=== PATIENT | female | born 1985 | race African-American/Black ===

== ENCOUNTER 2019-11-07 15:08 | Emergency (ER) | payer OTHER, SELFPAY ==
[2019-11-07 15:12] VITALS: BP 113/83; PULSE 64; RESP 20; TEMP 36.6; O2SAT 99
[2019-11-07 15:57] LABS: Add Urine Microscopic? YES; Appearance Urine Cloudy (Clear); Bilirubin Urine Negative (Negative); Blood Urine Negative (Negative); Color Urine Yellow (Yellow); Glucose Urine UA Negative (Negative); Ketones Urine Negative (Negative); Leukocyte Esterase Ur Negative LEU/UL (Negative); Mucus Urine Heavy /lpf; Nitrate Urine Negative (Negative); Protein Urine Negative (Negative); RBC Urine 0-2 /hpf (0-2); Specific Grav Ur 1.021 (1.001-1.035); Squamous Epithelial Cell Urine Many /hpf (Few); WBC Urine 0-3 /hpf
[2019-11-07 16:16] LABS: Bacteria Urine Trace /hpf
--- NOTE | 2019-11-07 16:47 | ED.FEMALEGU ---
HPI - Female Genitourinary General Chief complaint: Urogenital-Female Stated complaint: std, uti check Time Seen by Provider: 11/07/19 15:23 Source: patient Mode of arrival: ambulatory Limitations: no limitations History of Present Illness HPI Narrative: This is a 34 year old female that presents to the ER for abnormal vaginal discharge x 1 month. Also reports some dysuria and frequency. Reports a toothache that started today. Denies fever, abdominal pain, vomiting, pelvic pain, abnormal lesions, or hematuria. Related Data Allergies Allergy/AdvReac Type Severity Reaction Status Date / Time No Known Allergies Allergy Mild Verified 11/07/19 15:16 Review of Systems Review of Systems: Narrative: CONSTITUTIONAL: Denies fever ENT: Reports dentalgia GASTROINTESTINAL: Denies abdominal pain, nausea, vomiting GENITOURINARY: Reports dysuria. Denies hematuria. SKIN: Denies rash or itching. All systems reviewed & are unremarkable except as noted in HPI and below PMFSH Past Medical History Medical History (Updated 11/07/19 @ 17:04 by Katharina Mathur PA-C) History of schizophrenia Social History Social History (Updated 11/07/19 @ 16:57 by Katharina Mathur PA-C) Substance use: never Gender identity (if verbalized by the patient): Female Exam Narrative: Exam Narrative: GENERAL: Well-appearing, well-nourished, and in no acute distress. HEAD: Normocephalic, atraumatic. EYES: EOMI. ENT: Mucous membranes moist. Oropharynx without tonsillar hypertrophy exudate or other lesions. Poor dentition. Tooth number 5 cracked and tender to palpation without surrounding erythema or fluctuance to suggest abscess. No trismus. No facial swelling or erythema NECK: Supple. No adenopathy or masses. CHEST: Clear to auscultation. No respiratory distress. No wheezes rales or rhonchi HEART: Regular rate and rhythm. No murmur heard. Normal peripheral pulses. ABDOMEN: Soft, nontender, nondistended, normal active bowel sounds. EXTREMITIES: Normal range of motion. No edema. SKIN: Warm, dry, no rash. NEURO: No focal deficits. Alert and oriented x3. PSYCH: Normal mood and affect PELVIC: Normal external genitalia. Moderate amount of white malodorous vaginal discharge present. Normal cervix Course Vital Signs Vital signs: Vital Signs Temperature 97.9 F 11/07/19 15:12 Pulse Rate 64 11/07/19 15:12 Respiratory Rate 20 11/07/19 15:12 Blood Pressure 113/83 11/07/19 15:12 Pulse Oximetry 99 11/07/19 15:12 Temperature 97.9 F 11/07/19 15:12 Pulse Rate 64 11/07/19 15:12 Respiratory Rate 20 11/07/19 15:12 Blood Pressure 113/83 11/07/19 15:12 Pulse Oximetry 99 11/07/19 15:12 MDM - Female Genitourinary MDM Narrative Medical decision making narrative: Patient presents emergency department for abnormal vaginal discharge for the last month. Symptoms and exam consistent with bacterial vaginosis. Chlamydia and gonorrhea cultures sent. Trichomonas is negative. UA without evidence of infection. Urine is negative. Also reports a toothache. No erythema or fluctuance surrounding the tooth to suggest abscess. Patient will be started on clindamycin which will cover for bacterial vaginosis and for oral patricia. Patient would like to presumptively be treated for chlamydia and gonorrhea. Patient is to follow-up with her primary care doctor and dentist. She was given warnings to return to the ER Lab Data Attestation: I reviewed the patient's lab results. Labs: Lab Results 11/07/19 11/07/19 11/07/19 Range/Units 15:47 16:12 16:12 Urine Color Yellow (Yellow) Urine Appearance Cloudy H (Clear) Urine pH 5.0 (5.0-9.0) Ur Specific [place] 1.021 (1.001-1.035) Urine Protein Negative (Negative) mg/dL Urine Glucose (UA) Negative (Negative) mg/dL Urine Ketones Negative (Negative) mg/dL Ur Blood (Man) Negative (Negative) Urine Nitrate Negative (Negative) Urine Bilirubin Negat
[2019-11-07] MEDS: AZITHROMYCIN 250 MG TABLET 1000 MG PO (17:28)
[2019-11-07] MEDS: cefTRIAXone 250 MG VIAL IM (17:28)
[2019-11-07] MEDS: LIDOCAINE HCL 1% LOCAL INJ 20 ML VIAL (17:34)
== END 2019-11-07 17:35 | disposition home or self-care (01) ==
PROVIDERS: Physician Assistant; Emergency Provider Emergency Medicine
DX: N76.0 Acute vaginitis (principal); K08.89 Other specified disorders of teeth and supporting structures
CPT/HCPCS: 81001; 81025; 87070; 87491; 87591; 87808; 96372; 99284; A9270; J0696